=== PATIENT | female | born 1995 | race Caucasian/White ===

== ENCOUNTER 2021-06-19 11:55 | Inpatient (IN) | payer SELFPAY ==
[2021-06-19] MEDS ORDERED: Oxytocin/Lactated Ringers 10 UNIT/1,000 ML BAG IV ONE (12:11)
[2021-06-19] MEDS ORDERED: Sodium Chloride 0.9% 10 ML Syringe FLUSH PRN (12:26)
[2021-06-19] MEDS ORDERED: Nalbuphine 10 MG/1 ML Vial IVPUSH PRN (12:26)
[2021-06-19] MEDS ORDERED: Lactated Ringers 1,000 ML IV SCH (12:30)
[2021-06-19] MEDS ORDERED: Docusate Sodium 100 MG Cap PO PRN (12:31)
[2021-06-19] MEDS ORDERED: Benzocaine/Menthol 20%-0.5% Spray 78 GM Cannister TOP PRN (12:31)
[2021-06-19] MEDS ORDERED: Oxytocin 10 Units/1 ML SDV IM ONE (12:31)
[2021-06-19] MEDS ORDERED: Witch Hazel Medicated Pads 40/Jar TOP PRN (12:31)
[2021-06-19] MEDS ORDERED: Hydrocortisone Acetate 25 MG Supp RECTAL PRN (12:31)
[2021-06-19] MEDS ORDERED: Ibuprofen 600 MG Tab PO PRN (12:31)
[2021-06-19] MEDS ORDERED: Measles, Mumps & Rubella Vaccine 0.5 ML SDV SUBCUT ONE (12:31)
[2021-06-19] MEDS ORDERED: Acetaminophen 325 MG Tab PO PRN (12:31)
[2021-06-19] MEDS ORDERED: Magnesium Hydroxide 400 MG/5 ML Susp 30 ML Cup PO PRN (21:00)
[2021-06-19] MEDS ORDERED: Sodium Chloride 0.9% 10 ML Syringe FLUSH SCH (21:00)
[2021-06-20] MEDS ORDERED: Prenatal Multivitamin with Calcium/Folic Acid/Iron Tab PO SCH (09:00)
[2021-06-20] MEDS ORDERED: Diphtheria,Pertussis(Acell),Tetanus Vaccine 0.5 ML Syringe IM ONE (09:24)
== END 2021-06-20 10:30 | disposition home or self-care (01) | DRG 806 ==
LOC: JD.OB 11:55 → OBSVTOIN 12:05 → JD.OB 12:06
PROVIDERS: ADMIT Obstetrics & Gynecology; ATTEND Obstetrics & Gynecology
PROC: 10E0XZZ Delivery of Products of Conception, External Approach (ICD-10-PCS; principal; 2021-06-19)
PROC: 3E0234Z Introduction of Serum, Toxoid and Vaccine into Muscle, Percutaneous Approach (ICD-10-PCS; 2021-06-19)
DX: O62.3 Precipitate labor (principal); O99.324 Drug use complicating childbirth; Z37.0 Single live birth; O77.0 Labor and delivery complicated by meconium in amniotic fluid; Z20.822 Contact with and (suspected) exposure to COVID-19; O69.81X0 Labor and delivery complicated by cord around neck, without compression, not applicable or unspecified; O99.334 Smoking (tobacco) complicating childbirth; F17.210 Nicotine dependence, cigarettes, uncomplicated; F12.10 Cannabis abuse, uncomplicated; Z3A.40 40 weeks gestation of pregnancy; Z23 Encounter for immunization
CPT/HCPCS: 36415; 59409; 80306; 85025; 86592; 90471; 90707; 90715; A9270-GY; G0480; J2590; U0002